=== PATIENT | male | born 1980 | race Two or more races ===

== ENCOUNTER 2019-06-02 11:41 | Outpatient (CLI) | payer OTHER | END 2019-06-02 12:18 | disposition home or self-care (01) | LOC: TOM 11:41 | DX: G40.909 Epilepsy, unspecified, not intractable, without status epilepticus (principal); F91.3 Oppositional defiant disorder; F32.89 Other specified depressive episodes; F41.9 Anxiety disorder, unspecified ==

== ENCOUNTER 2019-06-28 15:01 | Emergency (ER) | payer OTHER ==
[~2019-06-28] VITALS: Ht 170.2 cm; Wt 70.8 kg
[2019-06-28] MEDS ORDERED: DEPAKENE (16:28)
[2019-06-28] MEDS ORDERED: FENOFIBRATE150 MG (16:28)
[2019-06-28] MEDS ORDERED: LIPITOR20 MG (16:29)
[2019-06-28] MEDS ORDERED: FAMOTIDINE40 MG/5 ML (16:29)
[2019-06-29] MEDS ORDERED: LEVSIN/SL0.125 MG SL (07:42)
[2019-06-29] MEDS ORDERED: PEPCID AC20 MG PO (07:42)
[2019-06-29] MEDS ORDERED: CIPRO500 MG PO (07:42)
== END 2019-06-29 07:55 ==
LOC: ER 15:01
DX: K57.32 Diverticulitis of large intestine without perforation or abscess without bleeding (principal)

== ENCOUNTER 2019-09-11 10:02 | Outpatient (CLI) | payer OTHER ==
[~2019-09-11 10:02] MED LIST: CIPRO500 MG PO; DEPAKENE; FAMOTIDINE40 MG/5 ML; FENOFIBRATE150 MG; LEVSIN/SL0.125 MG SL; LIPITOR20 MG; PEPCID AC20 MG PO
== END 2019-09-11 10:30 | disposition home or self-care (01) ==
LOC: LAB 10:02
DX: C18.6 Malignant neoplasm of descending colon (principal); C18.7 Malignant neoplasm of sigmoid colon

== ENCOUNTER 2019-09-11 11:46 | Outpatient (CLI) | payer OTHER | END 2019-09-11 11:53 | disposition home or self-care (01) | LOC: TOM 11:46 | DX: C18.6 Malignant neoplasm of descending colon (principal); K63.5 Polyp of colon | CPT/HCPCS: 74177; Q9965 ==

== ENCOUNTER 2019-09-14 00:36 | Emergency (ER) | payer OTHER ==
[~2019-09-14] VITALS: Ht 152.4 cm; Wt 68.0 kg
[2019-09-14] MEDS ORDERED: KEPPRA500 MG PO (01:21)
[2019-09-14] MEDS ORDERED: GLIMEPIRIDE2 MG (01:21)
[2019-09-14] MEDS ORDERED: ZITHROMAX200 MG/53 PO (11:37)
== END 2019-09-14 11:56 | disposition home or self-care (01) ==
LOC: ER 00:36
DX: R10.84 Generalized abdominal pain (principal); B96.0 Mycoplasma pneumoniae [M. pneumoniae] as the cause of diseases classified elsewhere

== ENCOUNTER 2019-10-02 08:40 | Inpatient (IN) | payer OTHER ==
[~2019-10-02] VITALS: Ht 172.7 cm; Wt 68.0 kg
[~2019-10-02 08:40] MED LIST changes: +FENOFIBRATE PO; +GLIMEPIRIDE2 MG; +KEPPRA500 MG PO; +VALPROIC A250 MG/5 M; +ZITHROMAX200 MG/53 PO; +[UNRECOGNIZED DRUG - OTHER] PO
[2019-10-05] MEDS ORDERED: GLIMEPIRIDE1 M1 PO (09:14)
[2019-10-05] MEDS ORDERED: TOPIRAMATE25 MG PO (09:15)
[2019-10-05] MEDS ORDERED: ATORVASTATIN CA20 MG PO (09:15)
[2019-10-05] MEDS ORDERED: FENOFIBRATE50 MG (09:16)
[2019-10-06] MEDS ORDERED: CLONAZEPAM0.25 MG PO (07:59)
[2019-10-09] MEDS ORDERED: OXYC1TAB9 PO (09:13)
[2019-10-09] MEDS ORDERED: INTESTINEX680 M1 PO (09:14)
[2019-10-09] MEDS ORDERED: DICLOFENAC SODI75 MG PO (09:14)
[2019-10-09] MEDS ORDERED: PANTOPRAZOLE SO40 MG PO (09:14)
== END 2019-10-09 15:05 | disposition home or self-care (01) | DRG 330 ==
LOC: SURH 10-05 06:00 → EDSEX 10-05 06:00 → O/R 10-05 06:00 → SURH 10-05 07:00
PROVIDERS: ADMIT Surgery
PROC: 07BC4ZX Excision of Pelvis Lymphatic, Percutaneous Endoscopic Approach, Diagnostic (ICD-10-PCS; 2019-10-05)
PROC: 0DTG4ZZ Resection of Left Large Intestine, Percutaneous Endoscopic Approach (ICD-10-PCS; principal; 2019-10-05 07:00)
PROC: 30233N1 Transfusion of Nonautologous Red Blood Cells into Peripheral Vein, Percutaneous Approach (ICD-10-PCS; 2019-10-08)
DX: C18.6 Malignant neoplasm of descending colon (principal); C78.7 Secondary malignant neoplasm of liver and intrahepatic bile duct; D62 Acute posthemorrhagic anemia

== ENCOUNTER 2019-11-09 06:00 | Day surgery (SDC) | payer OTHER ==
[~2019-11-09 06:00] MED LIST changes: +ATORVASTATIN CA20 MG PO; +CLONAZEPAM0.25 MG PO; +DICLOFENAC SODI75 MG PO; +FENOFIBRATE50 MG; +GLIMEPIRIDE1 M1 PO; +INTESTINEX680 M1 PO; +OXYC1TAB9 PO; +PANTOPRAZOLE SO40 MG PO; +TOPIRAMATE25 MG PO
[2019-11-09] MEDS ORDERED: ULTRACET PO (10:13)
== END 2019-11-09 14:15 | disposition home or self-care (01) ==
LOC: CIR.AMB 06:00 → ADM 10:30 → CIR.AMB 14:15
PROVIDERS: ATTEND Surgery
DX: C18.6 Malignant neoplasm of descending colon (principal)
CPT/HCPCS: 36561; C1751

== ENCOUNTER 2019-11-15 20:59 | Emergency (ER) | payer OTHER ==
[~2019-11-15] VITALS: Ht 172.7 cm; Wt 62.6 kg
[~2019-11-15 20:59] MED LIST changes: +ULTRACET PO
[2019-11-15] MEDS ORDERED: PROTONIX40 MG PO (21:10)
== END 2019-11-16 00:31 | disposition home or self-care (01) ==
LOC: ER 20:59
DX: R05 Cough (principal); B96.0 Mycoplasma pneumoniae [M. pneumoniae] as the cause of diseases classified elsewhere; Z03.818 Encounter for observation for suspected exposure to other biological agents ruled out

== ENCOUNTER 2019-11-16 13:00 | Inpatient (IN) | payer OTHER ==
[~2019-11-16] VITALS: Ht 172.7 cm; Wt 61.2 kg
[~2019-11-16 13:00] MED LIST changes: +PROTONIX40 MG PO
[2019-11-19] MEDS ORDERED: ULTRACET PO (10:49)
== END 2019-11-19 12:56 | disposition home or self-care (01) | DRG 200 ==
LOC: ER 13:00 → SURH 16:03 → SURG 17:25
PROVIDERS: ADMIT Surgery; ATTEND Surgery
PROC: 0W9B00Z Drainage of Left Pleural Cavity with Drainage Device, Open Approach (ICD-10-PCS; principal; 2019-11-16)
PROC: 4A033R1 Measurement of Arterial Saturation, Peripheral, Percutaneous Approach (ICD-10-PCS; 2019-11-16)
DX: J93.9 Pneumothorax, unspecified (principal); C18.6 Malignant neoplasm of descending colon; C78.7 Secondary malignant neoplasm of liver and intrahepatic bile duct; C78.89 Secondary malignant neoplasm of other digestive organs; B96.0 Mycoplasma pneumoniae [M. pneumoniae] as the cause of diseases classified elsewhere

== ENCOUNTER 2020-02-17 11:27 | Outpatient (CLI) | payer OTHER | END 2020-02-17 11:44 | disposition home or self-care (01) | LOC: TOM 11:27 | PROVIDERS: ATTEND Internal Medicine Hematology & Oncology | DX: C18.6 Malignant neoplasm of descending colon (principal); R11.2 Nausea with vomiting, unspecified; Z51.11 Encounter for antineoplastic chemotherapy | CPT/HCPCS: 74177; Q9965 ==

== ENCOUNTER 2020-03-18 14:07 | Outpatient (CLI) | payer OTHER | END 2020-03-18 14:16 | disposition home or self-care (01) | LOC: RAD 14:07 | PROVIDERS: ATTEND Psychiatry & Neurology Pain Medicine | DX: M17.11 Unilateral primary osteoarthritis, right knee (principal); M25.561 Pain in right knee; J98.4 Other disorders of lung ==

== ENCOUNTER → 2020-03-25 | Outpatient (CLI) | payer OTHER | END | disposition home or self-care (01) | LOC: MRI 09:42 | PROVIDERS: ATTEND Psychiatry & Neurology Pain Medicine | DX: F91.3 Oppositional defiant disorder (principal); D49.0 Neoplasm of unspecified behavior of digestive system | CPT/HCPCS: 70553; A9575 ==

== ENCOUNTER → 2020-07-11 | Outpatient (CLI) | payer OTHER | END | disposition home or self-care (01) | LOC: TOM 07-08 11:15 | PROVIDERS: ATTEND Internal Medicine Hematology & Oncology | DX: R91.1 Solitary pulmonary nodule (principal); K76.89 Other specified diseases of liver; C18.6 Malignant neoplasm of descending colon; C78.7 Secondary malignant neoplasm of liver and intrahepatic bile duct; R11.2 Nausea with vomiting, unspecified; Z51.11 Encounter for antineoplastic chemotherapy | CPT/HCPCS: 71260; 74177; Q9965 ==

== ENCOUNTER → 2020-10-19 | Outpatient (CLI) | payer OTHER | END | disposition home or self-care (01) | LOC: TOM 10:38 | PROVIDERS: ATTEND Internal Medicine Hematology & Oncology | DX: C18.8 Malignant neoplasm of overlapping sites of colon (principal); C78.7 Secondary malignant neoplasm of liver and intrahepatic bile duct; R11.2 Nausea with vomiting, unspecified; Z51.11 Encounter for antineoplastic chemotherapy | CPT/HCPCS: 71260; 74177; Q9965 ==

== ENCOUNTER 2021-02-21 11:18 | Outpatient (CLI) | payer OTHER | END 2021-02-21 11:26 | disposition home or self-care (01) | LOC: TOM 11:18 | PROVIDERS: ATTEND Internal Medicine Hematology & Oncology | DX: Q33.8 Other congenital malformations of lung (principal); C18.6 Malignant neoplasm of descending colon; C78.7 Secondary malignant neoplasm of liver and intrahepatic bile duct; R11.2 Nausea with vomiting, unspecified; Z51.11 Encounter for antineoplastic chemotherapy | CPT/HCPCS: 71270; 74178; Q9965 ==